=== PATIENT | male | born 1950 | race Caucasian/White ===

== ENCOUNTER 2016-09-09 13:54 | Inpatient (IN) ==
[2016-09-09] MEDS ORDERED: Nitroglycerin 0.4 MG TAB.SUBL SL PRN (14:23)
[2016-09-09] MEDS ORDERED: *HR* OxyCODONE Immed Rel 5 MG TABLET PO PRN (14:26)
--- NOTE | 2016-09-09 14:52 | Internal Med History&Physical ---
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 He is here for rehabilitation Internal Medicine - H&P: HPI Chief complaint: Patient had bilateral total knee replacement Admitted From: Hospital to Hospital Transfer Plans for Post Hospital Care: Home History of present illness: Mr. Levy is a 66 year old male Who was brought to the [facility] rehabilitation after bilateral total knee replacements for osteoarthritis and continued pain Past Med Surg Social Fam HX - Past Medical History Medical history: coronary artery disease, hyperlipidemia, hypertension Psychiatric history: no psych history - Past Surgical History Surgical History: non-contributory - Social History Smoking Status: Never smoker Smokeless Tobacco Status: No Alcohol use: none Drug use: none - Family History Mother Hx Family Endocrine Disorder: Yes (DM) Father Hx Family Cancer: Yes (Leukemia) Internal Medicine - H&P: Meds Atorvastatin Calcium [Lipitor] 20 mg PO HS 09/06/16 [History] Nitroglycerin [Nitrostat] 0.4 mg SL Q5M PRN 09/06/16 [History] Propranolol LA (24 HR) [Inderal LA] 60 mg PO HS 09/06/16 [History] Aspirin [Lo-Dose Aspirin EC] 81 mg PO DAILY 09/09/16 [History] Allergies celecoxib [From Celebrex] Allergy (Verified 09/06/16 12:44) Rash weakness, nausea, dizzy All Systems PM: A 10-system review of systems was performed and is negative for pertinent findings except as documented above in the HPI. - Constitutional Vitals: Temp Pulse Resp BP Pulse Ox 99.1 F 74 18 134/71 92 L 09/09/16 14:01 09/09/16 14:01 09/09/16 14:01 09/09/16 14:01 09/09/16 14:01 - Head Head exam: Present: atraumatic, normal inspection, normocephalic - Neck Neck exam general surgery: Present: supple, trachea midline. Absent: lymphadenopathy - Respiratory Respiratory exam: Present: CTAB. Absent: accessory muscle use, rales, rhonchi, wheezes - Cardiovascular Cardiovascular exam: Present: RRR, +S1, +S2. Absent: diastolic murmur, gallop, rubs, systolic murmur - GI/Abdominal GI/Abdominal exam: Present: normal bowel sounds, soft, no peritoneal signs. Absent: distended, tenderness - Extremities Exam Extremities exam: Present: normal inspection (No pretibial edema), warm, radial pulses palpable and symetrical. Absent: calf tenderness, cyanotic, pedal edema Internal Med - H&P Results - Labs Labs: Pending
[2016-09-09] MEDS: *HR* OxyCODONE Immed Rel 5 MG TABLET PO PRN (16:52)
[2016-09-09] MEDS: *HR* Enoxaparin 30 MG/0.3 ML SYRINGE SQ SCH (16:52)
[2016-09-09] MEDS: Propranolol LA (24 HR) 60 MG CAP.SA.24H PO SCH (19:48)
[2016-09-10] MEDS: *HR* OxyCODONE Immed Rel 5 MG TABLET PO PRN ×3 (02:24→09:35)
[2016-09-10] MEDS ORDERED: *HR* OxyCODONE Immed Rel 5 MG TABLET PO PRN (05:22)
[2016-09-10 05:47] LABS: Basophils % 0.2 %; Eosinophils # 0.1 K/mcL (0.0-0.6); Eosinophils % 0.9 %; Hematocrit 24.6 % (37.5-50.1); Hemoglobin 8.4 g/dL (12.9-16.9); Immature Granulocytes % 0.3 % (0-4); Lymphocytes # 1.2 K/mcL (0.6-4.6); Lymphocytes % 11.9 %; Mean Corpuscular HGB Conc 34.1 g/dL (31.6-35.5); Mean Corpuscular Hemoglobin 31.5 pg (28.0-33.3); Mean Corpuscular Volume 92.1 fL (83.0-100.0); Mean Platelet Volume 11.3 fL (9.4-12.4); Monocytes # 1.7 K/mcL (0.0-1.3); Monocytes % 16.6 %; Neutrophils # 7.1 K/mcL (1.6-8.9); Platelet Count 126 K/mcL (140-400); Red Blood Count 2.67 M/mcL (4.19-5.50); Red Cell Distribution Width 13.7 % (11.5-14.5); Segmented Neutrophils % 70.1 %
[2016-09-10 05:50] LABS: INR 1.2; Prothrombin Time 13.2 Seconds (9.4-12.1)
[2016-09-10 05:53] LABS: Activated Partial Thrombo Time 36.9 Seconds (26.0-36.0)
[2016-09-10 06:06] LABS: BUN/Creatinine Ratio 22 (6-26); Blood Urea Nitrogen 15 mg/dL (8-26); Calcium 8.8 mg/dL (8.6-10.8); Carbon Dioxide 27 mEq/L (19-29); Chloride 102 mEq/L (98-109); Glucose 124 mg/dL (70-99); Osmolality,Calculated 288 (280-300); Sodium 138 mEq/L (136-145); eGFR For African Americans > 60 (> 60); eGFR For Non-African Americans > 60 (> 60)
[2016-09-10] MEDS: *HR* Enoxaparin 30 MG/0.3 ML SYRINGE SQ SCH ×2 (06:22→18:03)
[2016-09-10] MEDS: *HR* HYDROcodone/Acet 5/325 mg TABLET PO PRN ×2 (13:58→20:27)
--- NOTE | 2016-09-10 14:45 | Internal Med Progress Note ---
Date of Encounter: 09/10/16 Time of Encounter: 14:43 - Assessment and plan (1) History of knee replacement, total Current Visit: Yes Status: Acute Assessment and plan: PT OT working on gait, transfer, endurance improving ADL. Qualifiers: Laterality: bilateral Qualified Code(s): Z96.653 - Presence of artificial knee joint, bilateral - Time Spent With Patient less than 15 minutes - Subjective Interval history: Complaints of moderate postop pain. No shortness of breath. No chest pain. No nausea vomiting. - Constitutional Vitals: Temp Pulse Resp BP Pulse Ox 98.2 F 76 16 117/70 96 09/10/16 12:32 09/10/16 12:32 09/10/16 12:32 09/10/16 12:32 09/10/16 12:32 General appearance: Present: mild distress, A&O X 3 - Respiratory Respiratory exam: Present: CTAB. Absent: accessory muscle use, rales, rhonchi, wheezes - Cardiovascular Cardiovascular exam: Present: RRR, +S1, +S2. Absent: diastolic murmur, gallop, rubs, systolic murmur - Expanded Lower Extremities Exam Knee exam: Present: erythema, swelling, tenderness Internal Medicine: Result - Labs CBC & Chem 7: 09/10/16 05:30 09/10/16 05:30 Labs: Short CBC 09/10/16 Range/Units 05:30 WBC 10.2 (4.3-11.1) K/mcL Hgb 8.4 L (12.9-16.9) g/dL Hct 24.6 L (37.5-50.1) % Plt Count 126 L (140-400) K/mcL Neutrophils # 7.1 (1.6-8.9) K/mcL BMP 09/10/16 05:30 Sodium 138 Potassium 4.0 Chloride 102 Carbon Dioxide 27 BUN 15 Creatinine 0.67 L Glucose 124 H Calcium 8.8 - ABG Interpretation ABG results: PT/INR, D-dimer PT 13.2 Seconds (9.4-12.1) H 09/10/16 05:30 Consult Discharge Plan - Plan Referrals: Caleb De Leon Jr, MD [Primary Care Provider] - (Thursday, September 15, 2016 at 11:15 at [facility] [place] [address], [place] [phone] Wednesday, October 05, 2016 at 9:50 at [facility] [place] [address], [place] [phone] )
[2016-09-10] MEDS: MOM Conc 10 ML UD.LIQ PO PRN (20:28)
[2016-09-10] MEDS: Propranolol LA (24 HR) 60 MG CAP.SA.24H PO SCH (20:44)
[2016-09-11] MEDS: *HR* HYDROcodone/Acet 5/325 mg TABLET PO PRN ×5 (03:38→21:36)
[2016-09-11] MEDS: *HR* Enoxaparin 30 MG/0.3 ML SYRINGE SQ SCH ×2 (03:39→17:39)
[2016-09-11] MEDS: MOM Conc 10 ML UD.LIQ PO PRN (08:05)
--- NOTE | 2016-09-11 08:49 | Internal Med Progress Note ---
Date of Encounter: 09/11/16 Time of Encounter: 08:48 - Assessment and plan (1) History of knee replacement, total Current Visit: Yes Status: Acute Assessment and plan: PT OT working on gait, transfer, endurance improving ADL. Qualifiers: Laterality: bilateral Qualified Code(s): Z96.653 - Presence of artificial knee joint, bilateral - Time Spent With Patient less than 15 minutes - Subjective Interval history: Complaints of moderate postop pain. No shortness of breath. No chest pain. No nausea vomiting. - Constitutional Vitals: Temp Pulse Resp BP Pulse Ox 98.3 F 74 18 101/63 91 L 09/11/16 07:11 09/11/16 07:11 09/10/16 20:00 09/10/16 20:00 09/10/16 20:00 General appearance: Present: mild distress, A&O X 3 - Respiratory Respiratory exam: Present: CTAB. Absent: accessory muscle use, rales, rhonchi, wheezes - Cardiovascular Cardiovascular exam: Present: RRR, +S1, +S2. Absent: diastolic murmur, gallop, rubs, systolic murmur - GI/Abdominal GI/Abdominal exam: Present: normal bowel sounds, soft, no peritoneal signs. Absent: distended, tenderness - Expanded Lower Extremities Exam Knee exam: Present: swelling, tenderness (wound appears clean) Internal Medicine: Result - Labs CBC & Chem 7: 09/10/16 05:30 09/10/16 05:30 - ABG Interpretation ABG results: PT/INR, D-dimer PT 13.2 Seconds (9.4-12.1) H 09/10/16 05:30 Consult Discharge Plan - Plan Referrals: Caleb De Leon Jr, MD [Primary Care Provider] - (Thursday, September 15, 2016 at 11:15 at [place] Rossana Fuller [facility] [place] [address] [phone] Wednesday, October 05, 2016 at 9:50 at [place] Joe Sanchez [facility] [place] [address] [phone] )
[2016-09-11] MEDS: Propranolol LA (24 HR) 60 MG CAP.SA.24H PO SCH (21:36)
[2016-09-12] MEDS: *HR* HYDROcodone/Acet 5/325 mg TABLET PO PRN ×2 (02:02→20:42)
[2016-09-12] MEDS: *HR* Enoxaparin 30 MG/0.3 ML SYRINGE SQ SCH ×2 (06:22→18:00)
[2016-09-12] MEDS: MOM Conc 10 ML UD.LIQ PO PRN (08:40)
[2016-09-12] MEDS: Ibuprofen 400 MG TABLET PO PRN ×2 (09:52→18:00)
[2016-09-12 10:14] LABS: Bilirubin,Urine Negative (Negative); Blood,Urine Negative (Negative); Clarity,Urine Clear (Clear); Color,Urine Amber (Yellow); Glucose,Urine (UA) Normal (Normal); Ketones,Urine Negative (Negative); Leukocyte Esterase,Urine Negative (Negative); Nitrite,Urine Negative (Negative); Protein,Urine Negative (Neg-Trace); Specific Gravity,Urine 1.015 (1.010-1.025); Urobilinogen,Urine Normal (Normal)
[2016-09-12] MEDS: Propranolol LA (24 HR) 60 MG CAP.SA.24H PO SCH (20:42)
[2016-09-13] MEDS: Ibuprofen 400 MG TABLET PO PRN ×3 (01:50→20:13)
[2016-09-13] MEDS: *HR* Enoxaparin 30 MG/0.3 ML SYRINGE SQ SCH ×2 (05:30→17:01)
[2016-09-13 05:39] LABS: Basophils % 0.3 %; Eosinophils # 0.3 K/mcL (0.0-0.6); Eosinophils % 2.7 %; Hemoglobin 8.7 g/dL (12.9-16.9); Immature Granulocytes % 0.5 % (0-4); Lymphocytes # 1.5 K/mcL (0.6-4.6); Lymphocytes % 16.1 %; Mean Corpuscular HGB Conc 33.5 g/dL (31.6-35.5); Mean Corpuscular Hemoglobin 31.9 pg (28.0-33.3); Mean Corpuscular Volume 95.2 fL (83.0-100.0); Mean Platelet Volume 10.1 fL (9.4-12.4); Monocytes # 1.3 K/mcL (0.0-1.3); Monocytes % 13.9 %; Neutrophils # 6.1 K/mcL (1.6-8.9); Platelet Count 239 K/mcL (140-400); Red Blood Count 2.73 M/mcL (4.19-5.50); Red Cell Distribution Width 14.2 % (11.5-14.5); Segmented Neutrophils % 66.5 %
[2016-09-13 05:47] LABS: BUN/Creatinine Ratio 17 (6-26); Blood Urea Nitrogen 11 mg/dL (8-26); Calcium 8.8 mg/dL (8.6-10.8); Carbon Dioxide 23 mEq/L (19-29); Chloride 104 mEq/L (98-109); Glucose 112 mg/dL (70-99); Osmolality,Calculated 286 (280-300); Potassium 4.6 mEq/L (3.5-4.5); Sodium 138 mEq/L (136-145); eGFR For African Americans > 60 (> 60); eGFR For Non-African Americans > 60 (> 60)
[2016-09-13] MEDS: *HR* HYDROcodone/Acet 5/325 mg TABLET PO PRN ×2 (08:03→13:48)
--- NOTE | 2016-09-13 13:48 | Internal Med Progress Note ---
Date of Encounter: 09/13/16 Time of Encounter: 13:39 - Assessment and plan (1) Arthritis of knee, right Current Visit: No Status: Acute Assessment and plan: Reason for surgery (2) Arthritis of left knee Current Visit: No Status: Acute Assessment and plan: Reason for surgery (3) Presence of bilateral total knee joint prostheses Current Visit: Yes Status: Acute Assessment and plan: Bilateral total knee replacements for osteoarthritis. - Time Spent With Patient less than 15 minutes - Subjective Interval history: doing well.pain still a problem but much improved overall.walking using walker in [place]. - Constitutional Vitals: Temp Pulse Resp BP Pulse Ox 97.8 F 70 16 130/78 96 09/13/16 07:00 09/13/16 07:00 09/13/16 07:00 09/13/16 07:00 09/13/16 07:00 General appearance: Present: mild distress, A&O X 3 - Head Head exam: Present: atraumatic, normal inspection, normocephalic - Neck Neck exam general surgery: Present: supple, trachea midline. Absent: lymphadenopathy - Respiratory Respiratory exam: Present: CTAB. Absent: accessory muscle use, rales, rhonchi, wheezes - Cardiovascular Cardiovascular exam: Present: RRR, +S1, +S2. Absent: diastolic murmur, gallop, rubs, systolic murmur - GI/Abdominal GI/Abdominal exam: Present: normal bowel sounds, soft, no peritoneal signs. Absent: distended, tenderness Internal Medicine: Result - Labs CBC & Chem 7: 09/13/16 05:20 09/13/16 05:20 Labs: Short CBC 09/13/16 Range/Units 05:20 WBC 9.2 (4.3-11.1) K/mcL Hgb 8.7 L (12.9-16.9) g/dL Hct 26.0 L (37.5-50.1) % Plt Count 239 D (140-400) K/mcL Neutrophils # 6.1 (1.6-8.9) K/mcL BMP 09/13/16 05:20 Sodium 138 Potassium 4.6 H Chloride 104 Carbon Dioxide 23 BUN 11 Creatinine 0.64 L Glucose 112 H Lab appears stable Calcium 8.8 - ABG Interpretation ABG results: PT/INR, D-dimer PT 13.2 Seconds (9.4-12.1) H 12/30/16 05:30 Consult Discharge Plan - Plan Referrals: Caleb De Leon Jr, MD [Primary Care Provider] - (Thursday, September 15, 2016 at 11:15 at [place] [facility] [place] [address] [phone] Wednesday, October 05, 2016 at 9:50 at [place] [facility] [address] [phone] )
[2016-09-13] MEDS: Propranolol LA (24 HR) 60 MG CAP.SA.24H PO SCH (20:13)
[2016-09-14] MEDS: Ibuprofen 400 MG TABLET PO PRN (05:33)
[2016-09-14] MEDS: *HR* Enoxaparin 30 MG/0.3 ML SYRINGE SQ SCH ×2 (05:33→17:48)
[2016-09-14] MEDS: *HR* HYDROcodone/Acet 5/325 mg TABLET PO PRN ×4 (09:49→23:24)
--- NOTE | 2016-09-14 13:12 | Discharge Summary ---
Date of Encounter: 09/14/16 Time of Encounter: 13:10 - Discharge Diagnosis (1) Arthritis of knee, right Priority: Primary Status: Acute Comments: Patient has done well status post bilateral total knee replacements for ON (2) Arthritis of left knee Priority: Primary Status: Acute (3) Presence of bilateral total knee joint prostheses Priority: Primary Status: Acute Comments: Patient is now getting 90 degree flexion and ambulating with his walker doing well. Pain is much improved to be discharged home in the morning after his doctor's appointment. - Discharge Medications Home Medications: Atorvastatin Calcium [Lipitor] 20 mg PO HS 09/06/16 [History] Nitroglycerin [Nitrostat] 0.4 mg SL Q5M PRN 09/06/16 [History] Propranolol LA (24 HR) [Inderal LA] 60 mg PO HS 09/06/16 [History] Aspirin [Lo-Dose Aspirin EC] 81 mg PO DAILY 09/09/16 [History] Allergies/Adverse Reactions: Allergies celecoxib [From Celebrex] Allergy (Verified 09/06/16 12:44) Rash weakness, nausea, dizzy Date of admission: 09/09/16 13:56 Primary care physician: Caleb De Leon Jr, MD Consults: 09/09/16 14:29 Consult to Occupational Therapy [CONS] Routine Comment: Evaluate, develop and implement POC Consult to Physical Therapy [CONS] Routine Comment: Evaluate, develop and implement POC Consult to Recreational Therapy [CONS] Routine Comment: Evaluate, develop and implement POC Discharging clinician: Scar Castillo Anticipated date of discharge: 09/15/16 - Patient Status Disposition: Home, Self-Care Condition: Good Functional capacity at discharge: uses cane/walker Overall status at discharge: patient is progressing back to baseline - Discharge Instructions Follow Up With: Caleb De Leon Jr, MD [Primary Care Provider] - (Thursday, September 15, 2016 at 11:15 at [place] [facility] [place] [phone] Wednesday, October 05, 2016 at 9:50 at [place] Joe Sanchez [facility] [address] [phone] ) - Diet and Activity Activity: ambulate only with your walker Diet: advance to your usual diet Interval History: [facility] after bilateral total knee replacements for osteoarthritis. Hospital course: Mr. Levy is a 66 year old male Patient is ambulating in the [place] and has improved pain control in addition is 90% flexion and will be discharged home in the company of his family tomorrow - Time Spent with Patient Total time spent providing and/or coordinating discharge services: Less than 30 minutes - Constitutional Vitals: Temp Pulse Resp BP Pulse Ox 98.0 F 99 12 132/54 95 09/14/16 07:22 09/14/16 07:22 09/13/16 19:00 09/14/16 07:22 09/14/16 07:22 General appearance: Present: mild distress, A&O X 3 - Head Head exam: Present: atraumatic, normal inspection, normocephalic - Neck Neck exam general surgery: Present: supple, trachea midline. Absent: lymphadenopathy - Respiratory Respiratory exam: Present: CTAB. Absent: accessory muscle use, rales, rhonchi, wheezes - Cardiovascular Cardiovascular exam: Present: RRR, +S1, +S2. Absent: diastolic murmur, gallop, rubs, systolic murmur - GI/Abdominal GI/Abdominal exam: Present: normal bowel sounds, soft, no peritoneal signs. Absent: distended, tenderness - VTE Documentation of Mechanical Device: Graduated compression elastic hosiery
[2016-09-14] MEDS: Propranolol LA (24 HR) 60 MG CAP.SA.24H PO SCH (20:17)
[2016-09-15] MEDS: *HR* HYDROcodone/Acet 5/325 mg TABLET PO PRN ×2 (03:44→07:55)
[2016-09-15] MEDS: *HR* Enoxaparin 30 MG/0.3 ML SYRINGE SQ SCH (05:12)
[2016-09-15 08:02] VITALS: BP 135/91
== END 2016-09-15 10:06 | disposition home or self-care (01) | DRG 561 ==
LOC: INPGRE 13:56
PROVIDERS: ADMIT Internal Medicine; ATTEND Internal Medicine